=== PATIENT | male | born 1980 | race American Indian/Alaskan Native ===

== ENCOUNTER 2020-09-06 07:12 | Outpatient (CLI) | payer OTHER ==
--- NOTE | 2020-09-06 11:47 | Ultrasound Report ---
SCROTAL ULTRASOUND WITH DOPPLER HISTORY: MASS RIGHT TESTICLE COMPARISON: None. TECHNIQUE: Grayscale, color and spectral Doppler images were obtained of the scrotum. FINDINGS: RIGHT: Right testicle: No significant abnormality. No mass. Right testicular size: 4.5 x 2.1 x 3.4 cm. Right epididymis: There is a large unilocular cyst containing debris in the right epididymal head ortiz suring 2.2 x 3.2 x 3.4 cm. LEFT: Left testicle: No significant abnormality. No mass. Left testicular size: 4.5 x 2.2 x 2.9 cm. Left epididymis: No significant abnormality. Additional findings: Spectral Doppler waveforms demonstrate arterial flow to both testicles. No asymm etric hyperemia, hydrocele or varicocele. IMPRESSION: Large right epididymal head cyst versus spermatocele. Signer Name: Abiel Gordillo Jr, MD Signed: 09/06/2020 8:14 AM Workstation Name: [id number]
== END 2020-09-06 07:13 | disposition home or self-care (01) ==
LOC: US 07:12
PROVIDERS: ATTEND Internal Medicine
DX: N50.3 Cyst of epididymis (principal)
CPT/HCPCS: 93975

== ENCOUNTER 2020-10-14 09:04 | Outpatient (CLI) | payer OTHER ==
--- NOTE | 2020-10-14 11:56 | Magnetic Resonance Report ---
MRI CERVICAL SPINE WITHOUT CONTRAST INDICATION / CLINICAL INFORMATION: DEGENERATIVE DISC DISEASE NECK LOW BACK. Neck pain. TECHNIQUE: Multisequence, multiplanar images of the cervical spine were obtained. COMPARISON: None available. FINDINGS: CRANIOCERVICAL JUNCTION:No significant abnormality. ALIGNMENT: No significant abnormality. VERTEBRAE:Normal marrow signal and vertebral body height for age. DISCS: There is mild diffuse disc desiccation and mild disc space narrowing at C4-5 and C5-6. VISUALIZED SPINAL CORD: No significant abnormality. [id number] ANALYSIS: C2-3: No significant disc abnormality, spinal canal stenosis, or neural foraminal stenosis. C3-4: No significant disc abnormality, spinal canal stenosis, or neural foraminal stenosis. C4-5: No significant disc abnormality, spinal canal stenosis, or neural foraminal stenosis. C5-6: There is mild posterior spurring and moderate right uncovertebral spurring resulting in moderat e to severe right neural foraminal narrowing. No central canal stenosis. C6-7: No significant disc abnormality, spinal canal stenosis, or neural foraminal stenosis. C7-T1: No significant disc abnormality, spinal canal stenosis, or neural foraminal stenosis. PARASPINAL SOFT TISSUES: No significant abnormality. ADDITIONAL FINDINGS: None. IMPRESSION: Minimal to mild cervical spondylosis is identified. There is mild diffuse disc desiccation. Mild disc space narrowing at C4-5 and C5-6. C5-C6 appears to be the most affected level where there is moderat e to severe right neural foraminal narrowing estimated at 50-75%. Correlate for radicular symptoms. MRI LUMBAR SPINE WITHOUT CONTRAST INDICATION / CLINICAL INFORMATION: DEGENERATIVE DISC DISEASE NECK LOW BACK. Back pain. TECHNIQUE: Multisequence, multiplanar images of the lumbar spine were obtained. COMPARISON: None available. FINDINGS: ALIGNMENT: Normal lumbar lordosis without significant scoliosis. VERTEBRAE:Normal marrow signal and vertebral body height for age. DISCS: Mild disc desiccation and narrowing is noted at L5-S1. The remaining levels are within normal limits. VISUALIZED SPINAL CORD: No significant abnormality. The conus terminates at L1 level. [id number] ANALYSIS: L1-2: No significant abnormality. L2-3: No significant abnormality. L3-4: No significant abnormality. L4-5: No significant abnormality. L5-S1: Mild disc space narrowing and desiccation. A moderate circumferential spur disc complex is nolvia dent. There is mild narrowing in the lateral recess of the neural foramen bilaterally, right greater than left. Bilateral neural foraminal narrowing is estimated at 25-50%. No focal herniation. No centr al canal stenosis. PARASPINAL SOFT TISSUES: No significant abnormality. ADDITIONAL FINDINGS: None. IMPRESSION: Mild to moderate degenerative changes at L5-S1 as described. The remaining levels are within normal limits. MR PELVIS WITHOUT CONTRAST HISTORY: Degenerative disc disease and neck and low back. Pain. COMPARISON: None. TECHNIQUE: Routine non-contrast MRI of the pelvis obtained. CONTRAST: None. FINDINGS: Lymphatics: No lymphadenopathy. Bowel: No significant abnormality. : No significant abnormality. Fluid: No ascites. Bone Marrow: No significant abnormality. The SI joints are unremarkable with no evidence for degenera tive change. The sacral neural foramen are widely patent with no evidence of nerve encroachment. Muscles: No significant abnormality. Subcutaneous soft tissues: No significant abnormality. Additional Findings: None. IMPRESSION: No significant abnormality. Signer Name: Abiel Gordillo Jr, MD Signed: 10/14/2020 11:51 AM Workstation Name: [id number]
== END 2020-10-14 09:05 | disposition home or self-care (01) ==
LOC: MRI 09:04
PROVIDERS: ATTEND Internal Medicine
DX: M50.321 Other cervical disc degeneration at C4-C5 level (principal); M51.37 Other intervertebral disc degeneration, lumbosacral region; M47.812 Spondylosis without myelopathy or radiculopathy, cervical region; M48.02 Spinal stenosis, cervical region
CPT/HCPCS: 72141; 72148; 72195